=== PATIENT | female | born 1960 | race Caucasian/White ===

== ENCOUNTER 2020-05-13 00:39 | Outpatient (CLI) | payer BC, SELFPAY ==
--- NOTE | 2020-05-13 09:50 | DI.NM_ITS ---
EXAM: NM BONE SCAN WHOLE BODY GRP CLINICAL HISTORY: DYSTONIA,G24.9. COMPARISON: No exams were available for comparison EXAMINATION: Whole body bone scan was performed with intravenous infusion 25.0 millicuries of techne tium 99 labeled methylene diphosphonate. FINDINGS: Whole body imaging shows normal renal and bladder uptake. There is normal uptake in the axial and a ppendicular skeleton whole body imaging. No focal area of increased uptake seen. IMPRESSION: Normal whole body bone scan.
[2020-05-13] MEDS: Normal Saline - Diluent 50 ML VIAL IV (11:51)
[2020-05-13] MEDS: Omnipaque 350 MG/ML 100 ML BTL IJ (11:51)
[2020-05-13] MEDS: Breeza Beverage 473 ML BTL PO (11:52)
--- NOTE | 2020-05-13 12:00 | DI.CT_ITS ---
EXAM: CT CHEST/ABD/PEL W CLINICAL HISTORY: DYSTONIA,G24.9 TECHNIQUE: CT examination of the chest, abdomen, and pelvis was performed utilizing intravenous inf usion of 100 cc of Omnipaque 350 and ingestion of dilute barium. COMPARISON: No exams were available for comparison FINDINGS: Lungs are clear. No pleural effusion. No pleural based mass. No mediastinal or hilar adenopathy. No mediastinal mass.. No axillary or supraclavicular adenopathy . Tracheobronchial tree appears intact. No evidence of pulmonary embolic disease. Unremarkable appearance of thoracic aorta and major branch vessels. The liver appears normal with no focal hepatic lesion identified. Spleen is unremarkable in appearance. Pancreas appears intact. Adrenals appear normal. Kidneys are unremarkable in appearance with no renal mass, hydronephrosis, or nephrolithiasis. Incid ental 1 cm lower pole right renal cyst noted. Abdominal aorta and major visceral branches appear intact. No focal bowel pathology. Appendix is normal. No evidence of diverticulitis. No abdominal or pelvic adenopathy. No significant abdominal wall hernia. No focal bony lesion identified on scanning of the chest, abdomen, and pelvis. IMPRESSION: Negative CT of the chest, abdomen, and pelvis. RADIATION DOSE DELIVERED: 1,291.48mGy.cm Total DLP 1,291.48mGy.cm Total DLP
== END 2020-05-13 00:59 ==
PROVIDERS: Visit Provider Psychiatry & Neurology Clinical Neurophysiology
DX: G24.8 Other dystonia (principal)
CPT/HCPCS: 74177; 78306; 71260; J3490

== ENCOUNTER 2022-07-13 03:47 | Outpatient (CLI) | payer BC, SELFPAY ==
[2022-07-13 12:29] LABS: CREATININE 1.1 mg/dL (0.55-1.02); Estimated GFR 57.52 (mL/min/1.73m2)
== END 2022-07-13 03:48 | disposition home or self-care (01) ==
LOC: LOS 03:47
DX: G50.0 Trigeminal neuralgia (principal)
CPT/HCPCS: 36415; 82565

== ENCOUNTER 2022-08-11 01:18 | Outpatient (CLI) | payer BC, SELFPAY ==
--- NOTE | 2022-08-11 | DI.MRI_ITS ---
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 COMPRESSION OF CRANIAL NERV TECHNIQUE: Multiplanar multisequence MRI of the brain was performed. Both noninfused and contrast i nfused sequences were performed. IV Contrast injected was cc Dotarem. COMPARISON: No exams were available for comparison FINDINGS: CEREBRAL PARENCHYMA: No evidence of intracranial hemorrhage, mass effect nor shift of midline structu re. No extraaxial fluid collections. Ventricles are not enlarged nor shifted. There is no significant focal signal abnormality in the cerebellar hemispheres nor within the yeni, m idbrain, and thalami. No evidence of cerebellar tonsillar ectopia. There is no abnormal signal abnormality in the periventricular white matter. DWI: No areas of restricted diffusion to suggest acute ischemic event. SWI: No microhemorrhages evident. There are no ring enhancing lesions in the brain. There is no abnormal meningeal enhancement. PITUITARY GLAND: No mass nor parasellar abnormality. No obvious abnormality in the cavernous sinuses. FLOW VOIDS: The expected flow void are noted. No evidence of obvious aneurysm nor obvious vascular ma lformation. IAC'S: There is no evidence of mass in the cerebellopontine angles. no evidence of intra canalicular acoustic neuroma-schwannoma. OTHER: Sub cm high-resolution sequences reveal unremarkable appearing trigeminal V th nerves in the e xtra-axial spaces as they exit both sides of midbrain and course anteriorly towards and into Meckel's caves. No mass seen in these nerves.. No obvious impinging vascular loop evident contacting these nerves as they head anteriorly in the extra-axial space. PARANASAL SINUSES: Closest thickening/post inflammatory retention cysts noted the floor of left maxil rebekah sinus. No associated fluid level. ORBITS: No obvious abnormal findings. IMPRESSION: 1. No significant intracranial findings on this MRI scan of the brain. 2. No abnormal enhancing intracranial findings. There are no ring enhancing lesions in the brain and there is no abnormal meningeal enhancement. 3. No obvious mass nor impingement upon the 5th cranial trigeminal nerves. DATA REPOSITORY:
== END 2022-08-11 01:38 ==
LOC: DI 01:19
DX: G50.0 Trigeminal neuralgia (principal)
CPT/HCPCS: 70553